=== PATIENT | female | born 1985 | race Caucasian/White ===

== ENCOUNTER → 2016-05-10 | Outpatient (CLI) | payer BC | LOC: BHSO 08:37 | DX: F33.42 Major depressive disorder, recurrent, in full remission (principal) ==

== ENCOUNTER → 2016-05-23 | Outpatient (CLI) | payer BC | LOC: BHSO 09:01 | DX: F41.1 Generalized anxiety disorder (principal) ==

== ENCOUNTER → 2016-08-09 | Outpatient (CLI) | payer BC | LOC: BHSO 08:41 | DX: F33.1 Major depressive disorder, recurrent, moderate (principal) ==

== ENCOUNTER → 2016-08-16 | Outpatient (CLI) | payer BC | LOC: BHSO 08:59 | DX: F33.0 Major depressive disorder, recurrent, mild (principal) ==

== ENCOUNTER → 2016-09-13 | Outpatient (CLI) | payer BC | LOC: BHSO 08:56 | DX: F33.42 Major depressive disorder, recurrent, in full remission (principal) ==

== ENCOUNTER → 2016-10-31 | Outpatient (CLI) | payer BC | LOC: BHSO 15:55 | DX: F33.1 Major depressive disorder, recurrent, moderate (principal) ==

== ENCOUNTER → 2016-12-14 | Outpatient (CLI) | payer BC | LOC: BHSO 15:09 | DX: F33.1 Major depressive disorder, recurrent, moderate (principal) ==

== ENCOUNTER → 2017-01-18 | Outpatient (CLI) | payer OTHER | LOC: BHSO 15:21 | DX: F33.42 Major depressive disorder, recurrent, in full remission (principal) ==

== ENCOUNTER → 2017-03-08 | Outpatient (CLI) | payer OTHER | LOC: BHSO 15:54 | DX: F33.1 Major depressive disorder, recurrent, moderate (principal) ==

== ENCOUNTER → 2017-04-02 | Outpatient (CLI) | payer OTHER | LOC: BHSO 09:51 | DX: F33.1 Major depressive disorder, recurrent, moderate (principal) ==

== ENCOUNTER → 2017-04-26 | Outpatient (CLI) | payer OTHER | LOC: BHSO 15:52 | DX: F33.1 Major depressive disorder, recurrent, moderate (principal) ==

== ENCOUNTER → 2017-07-26 | Outpatient (CLI) | payer OTHER | LOC: BHSO 12:52 | DX: F33.1 Major depressive disorder, recurrent, moderate (principal) ==

== ENCOUNTER → 2017-09-24 | Outpatient (CLI) | payer OTHER | LOC: BHSO 08:52 | DX: F33.1 Major depressive disorder, recurrent, moderate (principal) ==

== ENCOUNTER → 2017-12-23 | Outpatient (CLI) | payer OTHER | LOC: BHSO 08:51 | DX: F33.2 Major depressive disorder, recurrent severe without psychotic features (principal) ==

== ENCOUNTER → 2018-02-17 | Outpatient (CLI) | payer OTHER | LOC: BHSO 08:59 | DX: F41.1 Generalized anxiety disorder (principal) ==

== ENCOUNTER → 2018-05-19 | Outpatient (CLI) | payer OTHER | LOC: BHSO 08:53 | DX: F33.1 Major depressive disorder, recurrent, moderate (principal) ==

== ENCOUNTER → 2018-05-26 | Outpatient (CLI) | payer OTHER | LOC: BHSO 07:53 | DX: F33.1 Major depressive disorder, recurrent, moderate (principal) | CPT/HCPCS: G0463 ==

== ENCOUNTER → 2018-07-28 | Outpatient (CLI) | payer OTHER | LOC: BHSO 08:53 | DX: F33.1 Major depressive disorder, recurrent, moderate (principal) ==

== ENCOUNTER → 2018-07-29 | Outpatient (CLI) | payer OTHER | LOC: BHSO 08:09 | DX: F33.41 Major depressive disorder, recurrent, in partial remission (principal) | CPT/HCPCS: G0463 ==

== ENCOUNTER → 2018-12-26 | Outpatient (CLI) | payer OTHER | LOC: BHSO 15:21 | DX: F33.41 Major depressive disorder, recurrent, in partial remission (principal) | CPT/HCPCS: G0463 ==

== ENCOUNTER → 2018-12-30 | Outpatient (CLI) | payer OTHER | LOC: BHSO 10:00 | DX: F33.1 Major depressive disorder, recurrent, moderate (principal) ==

== ENCOUNTER → 2019-05-29 | Outpatient (CLI) | payer OTHER | LOC: BHSO 15:52 | DX: F31.81 Bipolar II disorder (principal) ==

== ENCOUNTER → 2019-10-29 | Outpatient (CLI) | payer OTHER | LOC: BHSO 16:15 | DX: F33.42 Major depressive disorder, recurrent, in full remission (principal) | CPT/HCPCS: G0463 ==

== ENCOUNTER → 2019-11-16 | Outpatient (CLI) | payer OTHER | LOC: BHSO 15:03 | DX: F31.81 Bipolar II disorder (principal) ==

== ENCOUNTER → 2019-12-11 | Outpatient (CLI) | payer OTHER | LOC: BHSO 09:00 | DX: F31.81 Bipolar II disorder (principal) ==

== ENCOUNTER → 2020-02-15 | Outpatient (CLI) | payer OTHER | LOC: BHSO 08:59 | DX: F31.81 Bipolar II disorder (principal) ==